=== PATIENT | female | born 1955 | race Caucasian/White ===

== ENCOUNTER 2024-04-19 19:34 | Inpatient (IN) | payer MEDICARE, OTHER ==
[~2024-04-19] VITALS: Ht 165.1 cm; Wt 122.5 kg
[~2024-04-19 19:34] MED LIST: ACET325T53 PO; ARIP10TA9 PO; BISA10SU61 RC; FLUO20CA42 PO; GABA-532 PO; HYDR-3980 PO; LEVO150T8 PO; MAGN400O6 PO; METF-440 PO; NA P133E RC; PANT40TA49 PO; RIVA15TA PO; SEMA0.25 SQ; TEMA15CA PO
[2024-04-19 20:13] LABS: BASOPHILS # (AUTO) 0.4 K/UL (0.0-0.2); BASOPHILS % (AUTO) 2.5 % (0.0-2.0); EOSINOPHILS # (AUTO) 0.4 K/uL (0.0-0.7); EOSINOPHILS % (AUTO) 2.6 % (0.0-7.0); HEMATOCRIT 31.1 % (31.2-41.9); LYMPHOCYTES # (AUTO) 1.3 K/uL (0.8-4.8); LYMPHOCYTES % (AUTO) 8.3 % (20.5-51.5); MEAN CORPUSCULAR HEMOGLOBIN 26.9 uug (24.7-32.8); MEAN CORPUSCULAR HGB CONC 32 g/dL (32.3-35.6); MEAN CORPUSCULAR VOLUME 83.7 fL (75.5-95.3); MONOCYTES # (AUTO) 0.9 K/uL (0.1-1.30); MONOCYTES % (AUTO) 5.9 % (0.0-11.0); NEUTROPHILS # (AUTO) 12.3 K/uL (1.8-8.9); NEUTROPHILS % (AUTO) 80.7 % (38.5-71.5); PLATELET COUNT (AUTO) 491 K/uL (179-408); RED BLOOD CELL COUNT(AUTO) 3.72 MIL/uL (3.63-4.92); RED CELL DISTRIBUTION WIDTH 15.5 % (12.3-17.7); WHITE BLOOD COUNT (AUTO) 15.2 K/uL (3.8-11.8)
[2024-04-19] MEDS ORDERED: ACETAMINOPHEN 325 MG TABLET PO PRN (20:15)
[2024-04-19] MEDS ORDERED: LORAZEPAM 0.5 MG TABLET PO PRN (20:15)
[2024-04-19] MEDS ORDERED: TEMAZEPAM 15 MG CAPSULE PO PRN (20:15)
[2024-04-19 20:22] LABS: CALCIUM 9.3 mg/dL (8.5-10.1); CREATININE 5.4 mg/dL (0.6-1.3); ETHANOL < 3 MG/DL (0-10); POTASSIUM 4.5 mmol/L (3.5-5.1)
[2024-04-19 20:30] LABS: DIFFERENTIAL COMMENT 1
[2024-04-19 20:32] LABS: ALBUMIN 2.3 g/dL (3.4-5.0); BILIRUBIN,TOTAL 0.4 mg/dL (0.2-1.0)
[2024-04-19 20:34] LABS: ALANINE AMINOTRANSFERASE 55 U/L (14-59); ALBUMIN 2.3 g/dL (3.4-5.0); ALKALINE PHOSPHATASE 238 U/L (50-136); ASPARTATE AMINOTRANSFERASE 38 U/L (15-37); BILIRUBIN,DIRECT 0.2 mg/dL (0.0-0.2); BILIRUBIN,TOTAL 0.4 mg/dL (0.2-1.0)
[2024-04-19 20:38] LABS: ACETAMINOPHEN < 2.0 ug/mL (10-30)
[2024-04-19 20:42] LABS: *SODIUM RNDM,URINE 46 mmol/L (40-220)
[2024-04-19 20:43] LABS: NT-PRO BNP 651 pg/mL (0-125)
[2024-04-19 20:44] LABS: *BILIRUBIN,URIN NEGATIVE (NEGATIVE); *BLOOD, URINE 2+ (NEGATIVE); *CLARITY,URINE CLOUDY (CLEAR); *COLOR,URINE Other (YELLOW); *KETONES,URINE NEGATIVE (NEGATIVE); *PROTEIN,URINE 1+ (NEGATIVE); *UROBILINOGEN,URINE 0.2 E.U./dl (NORMAL); LEUKOCYTE ESTERASE ,URINE 3+ (NEGATIVE); NITRITE, URINE POSITIVE (NEGATIVE); UGLUCOSE NEGATIVE (NEGATIVE)
[2024-04-19 20:45] LABS: BACTERIA,URINE FEW /HPF (NONE SEEN)
[2024-04-19] MEDS ORDERED: CEFTRIAXONE /D5W 50ML IVPB **ER PYXIS IV ONE (21:15)
[2024-04-19] MEDS: CEFTRIAXONE 1 G in IV DEXTROSE 5% 50 ML IV ONE (21:23)
[2024-04-19] MEDS: DOCUSATE SODIUM 250 MG CAPSULE PO SCH (23:25)
[2024-04-19] MEDS: IV 1/2NS 1000 ML 1,000 ML IV PRN (23:26)
[2024-04-19 23:53] VITALS: BP 133/51; TEMP 98.2; O2SAT 95
[2024-04-20] MEDS: HYDROCODONE/APAP 5-325MG TABLET PO PRN (00:47)
[2024-04-20 04:49] VITALS: BP 120/66; TEMP 98.2; O2SAT 95
[2024-04-20] MEDS: PANTOPRAZOLE SODIUM 40 MG TABLET.DR PO SCH (06:16)
[2024-04-20 07:31] LABS: BASOPHILS # (AUTO) 0.1 K/UL (0.0-0.2); BASOPHILS % (AUTO) 0.4 % (0.0-2.0); EOSINOPHILS # (AUTO) 0.1 K/uL (0.0-0.7); EOSINOPHILS % (AUTO) 0.4 % (0.0-7.0); HEMATOCRIT 33.7 % (31.2-41.9); HEMOGLOBIN 11.3 g/dL (10.9-14.3); LYMPHOCYTES # (AUTO) 1.4 K/uL (0.8-4.8); LYMPHOCYTES % (AUTO) 6.2 % (20.5-51.5); MEAN CORPUSCULAR HEMOGLOBIN 28.2 uug (24.7-32.8); MEAN CORPUSCULAR HGB CONC 34 g/dL (32.3-35.6); MEAN CORPUSCULAR VOLUME 83.9 fL (75.5-95.3); MONOCYTES # (AUTO) 1.4 K/uL (0.1-1.30); MONOCYTES % (AUTO) 6.4 % (0.0-11.0); NEUTROPHILS # (AUTO) 19.1 K/uL (1.8-8.9); NEUTROPHILS % (AUTO) 86.6 % (38.5-71.5); PLATELET COUNT (AUTO) 490 K/uL (179-408); RED BLOOD CELL COUNT(AUTO) 4.01 MIL/uL (3.63-4.92)
[2024-04-20 07:39] LABS: DIFFERENTIAL COMMENT 1
[2024-04-20 08:06] LABS: THYROID STIMULATING HORMONE 7.134 mIU/mL (0.358-3.740)
[2024-04-20 08:10] VITALS: BP 106/56; TEMP 98; O2SAT 97
[2024-04-20 08:14] LABS: BILIRUBIN,TOTAL 0.3 mg/dL (0.2-1.0); CALCIUM 9.2 mg/dL (8.5-10.1); CREATININE 4.6 mg/dL (0.6-1.3); MAGNESIUM 1.7 mg/dL (1.8-2.4); PHOSPHOROUS 5.5 mg/dL (2.5-4.9); POTASSIUM 3.8 mmol/L (3.5-5.1); TOTAL PROTEIN, SERUM 7.4 g/dL (6.4-8.2)
[2024-04-20] MEDS ORDERED: POTA10CA43 PO (09:59)
[2024-04-20] MEDS ORDERED: ACID1TAB4 PO (10:00)
[2024-04-20] MEDS ORDERED: FURO-152 PO (10:01)
[2024-04-20] MEDS ORDERED: RIVA10TA PO (10:01)
[2024-04-20] MEDS ORDERED: LURA80TA PO (10:02)
[2024-04-20] MEDS ORDERED: ONDA4TAB5 PO (10:03)
[2024-04-20] MEDS ORDERED: MAGNESIUM OXIDE 400 MG TABLET PO ONE (10:15)
[2024-04-20] MEDS ORDERED: REMEDY ESSENTIAL ZINC PASTE 113 GM TOP PRN (11:30)
[2024-04-20 11:50] VITALS: BP 114/62; TEMP 98.1; O2SAT 97
[2024-04-20] MEDS: TRIAMCINOLONE ACET 0.1% CREAM 15 GM TUBE TOP SCH (12:20)
[2024-04-20 16:04] VITALS: BP 115/66; TEMP 97.9; O2SAT 97
[2024-04-20] MEDS ORDERED: BISACODYL 10 MG SUPP.RECT RC PRN (17:30)
[2024-04-20] MEDS: CEFTRIAXONE 1 G in IV DEXTROSE 5% 50 ML IV SCH (18:04)
[2024-04-20 20:00] VITALS: BP 136/73; TEMP 97.1
[2024-04-20] MEDS: DOCUSATE SODIUM 100 MG CAPSULE PO SCH (20:48)
[2024-04-20] MEDS: ARIPIPRAZOLE 10 MG TABLET PO SCH (20:48)
[2024-04-20] MEDS: REMEDY ESSENTIAL ZINC PASTE 113 GM TOP SCH (21:00)
[2024-04-21] MEDS: LEVOTHYROXINE SODIUM 150 MCG TABLET PO SCH (06:26)
[2024-04-21 07:04] LABS: BASOPHILS # (AUTO) 0.1 K/UL (0.0-0.2); BASOPHILS % (AUTO) 0.3 % (0.0-2.0); EOSINOPHILS # (AUTO) 0.3 K/uL (0.0-0.7); EOSINOPHILS % (AUTO) 1.6 % (0.0-7.0); HEMATOCRIT 36.8 % (31.2-41.9); HEMOGLOBIN 11.8 g/dL (10.9-14.3); LYMPHOCYTES # (AUTO) 1.9 K/uL (0.8-4.8); LYMPHOCYTES % (AUTO) 10.6 % (20.5-51.5); MEAN CORPUSCULAR HEMOGLOBIN 27.6 uug (24.7-32.8); MEAN CORPUSCULAR HGB CONC 32 g/dL (32.3-35.6); MEAN CORPUSCULAR VOLUME 85.8 fL (75.5-95.3); MONOCYTES # (AUTO) 1.5 K/uL (0.1-1.30); MONOCYTES % (AUTO) 8.2 % (0.0-11.0); NEUTROPHILS # (AUTO) 14.5 K/uL (1.8-8.9); NEUTROPHILS % (AUTO) 79.3 % (38.5-71.5); PLATELET COUNT (AUTO) 488 K/uL (179-408); RED BLOOD CELL COUNT(AUTO) 4.29 MIL/uL (3.63-4.92); RED CELL DISTRIBUTION WIDTH 16.1 % (12.3-17.7); WHITE BLOOD COUNT (AUTO) 18.3 K/uL (3.8-11.8)
[2024-04-21 07:18] LABS: BILIRUBIN,TOTAL 0.4 mg/dL (0.2-1.0); MAGNESIUM 1.6 mg/dL (1.8-2.4); PHOSPHOROUS 4.8 mg/dL (2.5-4.9); POTASSIUM 3.2 mmol/L (3.5-5.1); TOTAL PROTEIN, SERUM 7.2 g/dL (6.4-8.2)
[2024-04-21 07:21] LABS: DIFFERENTIAL COMMENT 1
[2024-04-21 07:58] VITALS: BP 109/40; TEMP 98.1; O2SAT 97
[2024-04-21] MEDS: FLUOXETINE HCL 20 MG CAPSULE PO SCH (08:24)
[2024-04-21] MEDS: GABAPENTIN 300 MG CAPSULE PO SCH (08:24)
[2024-04-21] MEDS: ACIDOPHILUS/BULGARICUS CHEW TAB PO SCH (08:24)
[2024-04-21] MEDS ORDERED: GABAPENTIN 100 MG CAPSULE PO SCH (09:00)
[2024-04-21] MEDS ORDERED: POTASSIUM CHLORIDE 20 MEQ TAB.PRT.SR PO ONE (09:30)
[2024-04-21] MEDS: MAGNESIUM SULFATE/D5W 100 ML IV SCH (10:04)
[2024-04-21 11:48] VITALS: BP 131/67; TEMP 97.6; O2SAT 97
[2024-04-21] MEDS: POTASSIUM CHLORIDE 20 MEQ TAB.PRT.SR PO ONE (12:35)
[2024-04-21 15:25] VITALS: BP 133/66; TEMP 97.4; O2SAT 97
[2024-04-21] MEDS: CEFTRIAXONE 2 G in IV DEXTROSE 5% 100 ML IV SCH (17:39)
[2024-04-21] MEDS: MUPIROCIN 2% OINT 22 GM TUBE NS SCH (21:44)
[2024-04-21 22:37] VITALS: BP 156/63; TEMP 97; O2SAT 96
[2024-04-22] MEDS: ONDANSETRON 4 MG/2 ML VIAL IV PRN (00:19)
[2024-04-22 07:07] LABS: BASOPHILS # (AUTO) 0.1 K/UL (0.0-0.2); BASOPHILS % (AUTO) 0.4 % (0.0-2.0); EOSINOPHILS # (AUTO) 0.5 K/uL (0.0-0.7); EOSINOPHILS % (AUTO) 2.8 % (0.0-7.0); HEMATOCRIT 31.3 % (31.2-41.9); HEMOGLOBIN 10.5 g/dL (10.9-14.3); LYMPHOCYTES # (AUTO) 1.5 K/uL (0.8-4.8); MEAN CORPUSCULAR HGB CONC 33 g/dL (32.3-35.6); MEAN CORPUSCULAR VOLUME 83.8 fL (75.5-95.3); MONOCYTES # (AUTO) 1.5 K/uL (0.1-1.30); MONOCYTES % (AUTO) 8.2 % (0.0-11.0); NEUTROPHILS # (AUTO) 14.9 K/uL (1.8-8.9); NEUTROPHILS % (AUTO) 80.6 % (38.5-71.5); PLATELET COUNT (AUTO) 433 K/uL (179-408); RED BLOOD CELL COUNT(AUTO) 3.74 MIL/uL (3.63-4.92); RED CELL DISTRIBUTION WIDTH 15.9 % (12.3-17.7); WHITE BLOOD COUNT (AUTO) 18.5 K/uL (3.8-11.8)
[2024-04-22 07:17] LABS: DIFFERENTIAL COMMENT 1
[2024-04-22 07:21] LABS: CALCIUM 8.5 mg/dL (8.5-10.1); CREATININE 2.3 mg/dL (0.6-1.3); MAGNESIUM 1.7 mg/dL (1.8-2.4)
[2024-04-22] MEDS: MAGNESIUM OXIDE 400 MG TABLET PO SCH (08:32)
[2024-04-22] MEDS: POTASSIUM CHLORIDE 20 MEQ TAB.PRT.SR PO ONE (08:33)
[2024-04-22 16:00] VITALS: BP 137/87; TEMP 98.6; O2SAT 97
[2024-04-22 20:10] VITALS: BP 149/68; TEMP 97.8; O2SAT 97
[2024-04-22] MEDS ORDERED: CEFEPIME HCL 1 G VIAL ONE (21:52)
[2024-04-23 04:10] VITALS: BP 135/60; TEMP 97.7; O2SAT 97
[2024-04-23 06:28] LABS: BASOPHILS # (AUTO) 0.1 K/UL (0.0-0.2); BASOPHILS % (AUTO) 0.4 % (0.0-2.0); EOSINOPHILS # (AUTO) 0.7 K/uL (0.0-0.7); EOSINOPHILS % (AUTO) 3.9 % (0.0-7.0); HEMOGLOBIN 10.3 g/dL (10.9-14.3); LYMPHOCYTES # (AUTO) 1.6 K/uL (0.8-4.8); LYMPHOCYTES % (AUTO) 8.9 % (20.5-51.5); MEAN CORPUSCULAR HEMOGLOBIN 27.8 uug (24.7-32.8); MEAN CORPUSCULAR HGB CONC 33 g/dL (32.3-35.6); MEAN CORPUSCULAR VOLUME 83.8 fL (75.5-95.3); MONOCYTES # (AUTO) 1.5 K/uL (0.1-1.30); MONOCYTES % (AUTO) 8.8 % (0.0-11.0); NEUTROPHILS # (AUTO) 13.6 K/uL (1.8-8.9); PLATELET COUNT (AUTO) 418 K/uL (179-408); RED BLOOD CELL COUNT(AUTO) 3.71 MIL/uL (3.63-4.92); RED CELL DISTRIBUTION WIDTH 16.1 % (12.3-17.7); WHITE BLOOD COUNT (AUTO) 17.4 K/uL (3.8-11.8)
[2024-04-23 06:46] LABS: ALBUMIN 1.9 g/dL (3.4-5.0); BILIRUBIN,TOTAL 0.3 mg/dL (0.2-1.0); CALCIUM 8.9 mg/dL (8.5-10.1); MAGNESIUM 1.6 mg/dL (1.8-2.4); PHOSPHOROUS 3.5 mg/dL (2.5-4.9); POTASSIUM 3.3 mmol/L (3.5-5.1); TOTAL PROTEIN, SERUM 6.6 g/dL (6.4-8.2)
[2024-04-23 06:58] LABS: DIFFERENTIAL COMMENT 1
[2024-04-23] MEDS: CEFEPIME HCL 2 GM in IV DEXTROSE 5% 100 ML IV SCH (08:53)
[2024-04-23] MEDS ORDERED: CEFEPIME HCL 1 G in IV DEXTROSE 5% 50 ML IV SCH (09:00)
[2024-04-23] MEDS: POTASSIUM CHLORIDE 10 MEQ TAB.PRT.SR PO ONE (11:46)
[2024-04-23 12:08] VITALS: BP 148/63; TEMP 97.8; O2SAT 95
[2024-04-23] MEDS: MAGNESIUM SULFATE/D5W 100 ML IV SCH (14:05)
[2024-04-23 16:48] VITALS: BP 129/55; TEMP 97.8; O2SAT 95
[2024-04-23 20:00] VITALS: BP 142/61; TEMP 97.5; O2SAT 95
[2024-04-24 05:18] VITALS: BP 125/66; TEMP 97.4; O2SAT 96
[2024-04-24 06:58] LABS: BASOPHILS # (AUTO) 0.1 K/UL (0.0-0.2); BASOPHILS % (AUTO) 0.5 % (0.0-2.0); EOSINOPHILS # (AUTO) 0.7 K/uL (0.0-0.7); EOSINOPHILS % (AUTO) 4.6 % (0.0-7.0); HEMATOCRIT 26.7 % (31.2-41.9); HEMOGLOBIN 8.9 g/dL (10.9-14.3); LYMPHOCYTES # (AUTO) 1.8 K/uL (0.8-4.8); LYMPHOCYTES % (AUTO) 12.4 % (20.5-51.5); MEAN CORPUSCULAR HEMOGLOBIN 27.8 uug (24.7-32.8); MEAN CORPUSCULAR HGB CONC 33 g/dL (32.3-35.6); MEAN CORPUSCULAR VOLUME 83.9 fL (75.5-95.3); MONOCYTES # (AUTO) 1.1 K/uL (0.1-1.30); NEUTROPHILS # (AUTO) 10.7 K/uL (1.8-8.9); NEUTROPHILS % (AUTO) 74.5 % (38.5-71.5); PLATELET COUNT (AUTO) 409 K/uL (179-408); RED BLOOD CELL COUNT(AUTO) 3.18 MIL/uL (3.63-4.92); RED CELL DISTRIBUTION WIDTH 16.2 % (12.3-17.7); WHITE BLOOD COUNT (AUTO) 14.3 K/uL (3.8-11.8)
[2024-04-24 07:22] LABS: ALBUMIN 1.7 g/dL (3.4-5.0); BILIRUBIN,TOTAL 0.3 mg/dL (0.2-1.0); CALCIUM 8.6 mg/dL (8.5-10.1); CREATININE 1.9 mg/dL (0.6-1.3); MAGNESIUM 1.8 mg/dL (1.8-2.4); PHOSPHOROUS 3.4 mg/dL (2.5-4.9); POTASSIUM 3.5 mmol/L (3.5-5.1); TOTAL PROTEIN, SERUM 6.3 g/dL (6.4-8.2)
[2024-04-24 07:23] LABS: DIFFERENTIAL COMMENT 1
[2024-04-24 11:54] VITALS: BP 148/58; TEMP 98; O2SAT 98
[2024-04-24] MEDS ORDERED: CRAN450T9 PO (12:26)
[2024-04-24] MEDS ORDERED: TAMS-3 PO (12:26)
[2024-04-24] MEDS ORDERED: CIPR-263 PO (12:26)
[2024-04-24] MEDS ORDERED: LEVO175T7 PO (12:26)
[2024-04-24] MEDS ORDERED: GABA-532 PO (12:26)
[2024-04-24 14:06] VITALS: BP 125/60; TEMP 97.5; O2SAT 97
[2024-04-24 15:45] VITALS: BP 141/58; TEMP 97.8; O2SAT 98
== END 2024-04-24 15:45 | DRG 871 ==
LOC: ER 19:36 → TELE3 22:19 → MEDSURG3 04-21 11:12
PROVIDERS: ADMIT Internal Medicine; ATTEND Internal Medicine
DX: A41.59 Other Gram-negative sepsis (principal); E43 Unspecified severe protein-calorie malnutrition; G92.8 Other toxic encephalopathy; N17.9 Acute kidney failure, unspecified; Z68.41 Body mass index [BMI] 40.0-44.9, adult; D68.59 Other primary thrombophilia; N13.6 Pyonephrosis; R65.20 Severe sepsis without septic shock; E66.01 Morbid (severe) obesity due to excess calories; D50.9 Iron deficiency anemia, unspecified; E03.9 Hypothyroidism, unspecified; F41.9 Anxiety disorder, unspecified; F25.0 Schizoaffective disorder, bipolar type; S82.51XD Displaced fracture of medial malleolus of right tibia, subsequent encounter for closed fracture with routine healing; Z74.09 Other reduced mobility; X58.XXXD Exposure to other specified factors, subsequent encounter; E11.42 Type 2 diabetes mellitus with diabetic polyneuropathy; Z79.01 Long term (current) use of anticoagulants; Z79.84 Long term (current) use of oral hypoglycemic drugs; Z79.899 Other long term (current) drug therapy; Z87.891 Personal history of nicotine dependence; Z79.890 Hormone replacement therapy; Z22.322 Carrier or suspected carrier of Methicillin resistant Staphylococcus aureus; R31.9 Hematuria, unspecified
CPT/HCPCS: 36415; 71045; 73600; 83550; 83605; 83735; 84100; 84300; 84443; 84480; 84484; 85025; 85610; 87040; 93005; A4606; A4663; G0378; G0480; J0692; J0696; J2405; J3475

== ENCOUNTER 2024-08-11 14:12 | Inpatient (IN) | payer MEDICARE, OTHER ==
[~2024-08-11] VITALS: Ht 165.1 cm; Wt 115.2 kg
[~2024-08-11 14:12] MED LIST changes: +ACID1TAB4 PO; +CIPR-263 PO; +CRAN450T9 PO; -HYDR-3980 PO; -LEVO150T8 PO; +LEVO175T7 PO; +LURA80TA PO; -MAGN400O6 PO; -METF-440 PO; +ONDA4TAB5 PO; +RIVA10TA PO; -RIVA15TA PO; +TAMS-3 PO; -TEMA15CA PO
[2024-08-11 16:17] LABS: *BILIRUBIN,URIN NEGATIVE (NEGATIVE); *CLARITY,URINE CLEAR (CLEAR); *KETONES,URINE NEGATIVE (NEGATIVE); *PROTEIN,URINE NEGATIVE (NEGATIVE); *UROBILINOGEN,URINE 0.2 E.U./dl (NORMAL); LEUKOCYTE ESTERASE ,URINE 1+ (NEGATIVE); NITRITE, URINE NEGATIVE (NEGATIVE); PH,URINE 5.5 (5.0-8.0); UGLUCOSE NEGATIVE (NEGATIVE)
[2024-08-11 16:21] LABS: *BLOOD, URINE TRACE (NEGATIVE); *COLOR,URINE LIGHT YELLOW (YELLOW)
[2024-08-11 16:23] LABS: BASOPHILS # (AUTO) 0.1 K/UL (0.0-0.2); BASOPHILS % (AUTO) 0.6 % (0.0-2.0); EOSINOPHILS # (AUTO) 0.2 K/uL (0.0-0.7); HEMATOCRIT 39.7 % (31.2-41.9); HEMOGLOBIN 13.3 g/dL (10.9-14.3); LYMPHOCYTES # (AUTO) 2.9 K/uL (0.8-4.8); LYMPHOCYTES % (AUTO) 29.2 % (20.5-51.5); MEAN CORPUSCULAR HEMOGLOBIN 28.1 uug (24.7-32.8); MEAN CORPUSCULAR HGB CONC 34 g/dL (32.3-35.6); MONOCYTES # (AUTO) 0.7 K/uL (0.1-1.30); MONOCYTES % (AUTO) 6.8 % (0.0-11.0); NEUTROPHILS # (AUTO) 6.2 K/uL (1.8-8.9); NEUTROPHILS % (AUTO) 61.4 % (38.5-71.5); PLATELET COUNT (AUTO) 336 K/uL (179-408); RED BLOOD CELL COUNT(AUTO) 4.72 MIL/uL (3.63-4.92); RED CELL DISTRIBUTION WIDTH 16.1 % (12.3-17.7); WHITE BLOOD COUNT (AUTO) 10.1 K/uL (3.8-11.8)
[2024-08-11 16:25] LABS: DIFFERENTIAL COMMENT 1
[2024-08-11 16:26] LABS: CALCIUM 9.1 mg/dL (8.5-10.1); CARBON DIOXIDE 25 mmol/L (21-32); CHLORIDE 101 mmol/L (98-107); CREATININE 0.9 mg/dL (0.6-1.3); GLUCOSE 112 mg/dL (74-106); POTASSIUM 3.8 mmol/L (3.5-5.1); SODIUM SERUM 136 mmol/L (136-145); UREA NITROGEN, BLOOD 29 mg/dL (7-18)
[2024-08-11] MEDS ORDERED: METF-440 PO (16:29)
[2024-08-11] MEDS ORDERED: POLY17PO4 PO (16:29)
[2024-08-11] MEDS ORDERED: LEVO150T8 PO (16:29)
[2024-08-11] MEDS ORDERED: SEMA1PEN SQ (16:29)
[2024-08-11] MEDS ORDERED: VITAMIN E PO (16:29)
[2024-08-11] MEDS ORDERED: GABA-532 PO (16:29)
[2024-08-11] MEDS ORDERED: MAGN400T26 PO (16:29)
[2024-08-11] MEDS ORDERED: MAGN400O6 PO (16:29)
[2024-08-11] MEDS ORDERED: CHOL200026 PO (16:29)
[2024-08-11 16:35] LABS: RBC,URINE 0-3 /HPF (0-3)
[2024-08-11 16:36] LABS: BACTERIA,URINE FEW /HPF (NONE SEEN); SQUAMOUS EPITHELIAL CELL,UR FEW /HPF (NONE SEEN)
[2024-08-11 16:39] LABS: ALANINE AMINOTRANSFERASE 12 U/L (14-59); ALBUMIN 2.9 g/dL (3.4-5.0); ALKALINE PHOSPHATASE 95 U/L (50-136); ASPARTATE AMINOTRANSFERASE 11 U/L (15-37); BILIRUBIN,DIRECT 0.1 mg/dL (0.0-0.2); BILIRUBIN,TOTAL 0.3 mg/dL (0.2-1.0); NT-PRO BNP 144 pg/mL (0-125); TOTAL PROTEIN, SERUM 7.4 g/dL (6.4-8.2)
[2024-08-11] MEDS: MAGNESIUM SULFATE/D5W 100 ML IV SCH (17:15)
[2024-08-11] MEDS ORDERED: MAGNESIUM SULFATE/D5W 100 ML ONE (17:50)
[2024-08-11] MEDS ORDERED: CEFTRIAXONE /D5W 50ML IVPB **ER PYXIS IV ONE (17:51)
[2024-08-11] MEDS: IV NS 1000 ML 1,000 ML IV ONE (18:03)
[2024-08-11] MEDS: CEFTRIAXONE 1 G in IV DEXTROSE 5% 50 ML IV ONE (18:03)
[2024-08-11] MEDS ORDERED: ONDANSETRON 4 MG/2 ML VIAL IV PRN (18:45)
[2024-08-11] MEDS ORDERED: REMEDY ESSENTIAL ZINC PASTE 113 GM TP PRN (18:45)
[2024-08-11] MEDS ORDERED: ACETAMINOPHEN 325 MG TABLET PO PRN (18:45)
[2024-08-11] MEDS ORDERED: MAGNESIUM HYDROXIDE 30 ML LIQUID UDC PO PRN (18:45)
[2024-08-11] MEDS ORDERED: MAGNESIUM SULFATE/D5W 200 ML ONE (20:33)
[2024-08-11] MEDS ORDERED: ENOXAPARIN SODIUM 40 MG/0.4 ML DISP.SYRIN SQ ONE (21:45)
[2024-08-11] MEDS: ENOXAPARIN SODIUM 40 MG/0.4 ML DISP.SYRIN SQ SCH (21:45)
[2024-08-12] MEDS ORDERED: BISACODYL 10 MG SUPP.RECT RC PRN
[2024-08-12] MEDS ORDERED: INSULIN REGULAR, HUMAN 300 UNITS/3 ML VIAL SQ PRN
[2024-08-12] MEDS ORDERED: DEXTROSE 50% 50 ML DISP.SYRIN IV PRN
[2024-08-12] MEDS ORDERED: MAGNESIUM HYDROXIDE 30 ML LIQUID UDC PO PRN
[2024-08-12] MEDS ORDERED: INSULIN REGULAR, HUMAN 1000 UNIT/10 ML VIAL SQ PRN
[2024-08-12] MEDS ORDERED: FLEET ENEMA 133 ML BOTTLE RC PRN
[2024-08-12 01:00] VITALS: BP 128/75; TEMP 98; O2SAT 97
[2024-08-12 05:45] VITALS: BP 140/65; TEMP 98; O2SAT 97
[2024-08-12] MEDS: PANTOPRAZOLE SODIUM 40 MG TABLET.DR PO SCH (06:21)
[2024-08-12] MEDS: LEVOTHYROXINE SODIUM 150 MCG TABLET PO SCH (06:22)
[2024-08-12] MEDS: BLOOD SUGAR DIAGNOSTIC 1 EACH STRIP VI SCH (06:23)
[2024-08-12 06:33] LABS: CALCIUM 9.8 mg/dL (8.5-10.1); MAGNESIUM 2.4 mg/dL (1.8-2.4); PHOSPHOROUS 3.7 mg/dL (2.5-4.9); POTASSIUM 3.9 mmol/L (3.5-5.1)
[2024-08-12 06:45] LABS: THYROID STIMULATING HORMONE 0.726 mIU/mL (0.358-3.740)
[2024-08-12 07:03] LABS: BASOPHILS # (AUTO) 0.1 K/UL (0.0-0.2); BASOPHILS % (AUTO) 1.4 % (0.0-2.0); DIFFERENTIAL COMMENT 0; EOSINOPHILS # (AUTO) 0.2 K/uL (0.0-0.7); EOSINOPHILS % (AUTO) 1.9 % (0.0-7.0); HEMATOCRIT 41.7 % (31.2-41.9); HEMOGLOBIN 13.9 g/dL (10.9-14.3); LYMPHOCYTES # (AUTO) 2.7 K/uL (0.8-4.8); LYMPHOCYTES % (AUTO) 31.4 % (20.5-51.5); MEAN CORPUSCULAR HGB CONC 33 g/dL (32.3-35.6); MONOCYTES # (AUTO) 0.5 K/uL (0.1-1.30); MONOCYTES % (AUTO) 6.1 % (0.0-11.0); NEUTROPHILS # (AUTO) 5.1 K/uL (1.8-8.9); NEUTROPHILS % (AUTO) 59.2 % (38.5-71.5); PLATELET COUNT (AUTO) 327 K/uL (179-408); RED BLOOD CELL COUNT(AUTO) 4.97 MIL/uL (3.63-4.92); RED CELL DISTRIBUTION WIDTH 16.6 % (12.3-17.7); WHITE BLOOD COUNT (AUTO) 8.5 K/uL (3.8-11.8)
[2024-08-12] MEDS: VITAMIN E 400 UNITS CAPSULE PO SCH (08:49)
[2024-08-12] MEDS: CHOLECALCIFEROL 1,000 UNIT TABLET PO SCH (08:49)
[2024-08-12] MEDS: METFORMIN HCL 500 MG TABLET PO SCH (08:49)
[2024-08-12] MEDS: FLUOXETINE HCL 20 MG CAPSULE PO SCH (08:49)
[2024-08-12] MEDS ORDERED: MAGNESIUM OXIDE 400 MG TABLET PO SCH ×2 (09:00)
[2024-08-12] MEDS ORDERED: CEFTRIAXONE 1 G in IV DEXTROSE 5% 50 ML IV SCH (09:00)
[2024-08-12] MEDS ORDERED: Medication Not On Formulary EA (Cranberry Fruit (Cranberry) 450 MG) PO SCH (09:00)
[2024-08-12] MEDS ORDERED: LURASIDONE HCL 80 MG PO SCH (09:00)
[2024-08-12] MEDS ORDERED: GABAPENTIN 100 MG CAPSULE PO SCH (09:00)
[2024-08-12] MEDS ORDERED: DOXY100T2 PO (11:09)
[2024-08-12] MEDS: GABAPENTIN 300 MG CAPSULE PO SCH (11:28)
[2024-08-12 12:01] VITALS: BP 108/52; TEMP 97.8; O2SAT 97
[2024-08-12 15:52] VITALS: BP 121/50; TEMP 97.7; O2SAT 97
[2024-08-12] MEDS: CEFTRIAXONE 2 G in IV DEXTROSE 5% 100 ML IV SCH (17:03)
[2024-08-12] MEDS: RIVAROXABAN 10 MG TABLET PO SCH (17:04)
[2024-08-12] MEDS: ARGININE/GLUTAMINE/CALCIUM BMB 1 EACH POWD.PACK PO SCH (17:06)
[2024-08-12 19:00] VITALS: BP 119/52; TEMP 97.6; O2SAT 95
[2024-08-12] MEDS: ARIPIPRAZOLE 10 MG TABLET PO SCH (20:35)
[2024-08-12] MEDS: TAMSULOSIN HCL 0.4 MG CAP.SR.24H PO SCH (20:35)
[2024-08-13 06:00] VITALS: BP 110/48; TEMP 97.7; O2SAT 96
[2024-08-13 07:41] LABS: BASOPHILS % (AUTO) 0.4 % (0.0-2.0); EOSINOPHILS # (AUTO) 0.2 K/uL (0.0-0.7); EOSINOPHILS % (AUTO) 2.5 % (0.0-7.0); HEMATOCRIT 38.1 % (31.2-41.9); HEMOGLOBIN 12.9 g/dL (10.9-14.3); LYMPHOCYTES # (AUTO) 2.5 K/uL (0.8-4.8); LYMPHOCYTES % (AUTO) 32.4 % (20.5-51.5); MEAN CORPUSCULAR HEMOGLOBIN 28.4 uug (24.7-32.8); MEAN CORPUSCULAR HGB CONC 34 g/dL (32.3-35.6); MONOCYTES # (AUTO) 0.6 K/uL (0.1-1.30); MONOCYTES % (AUTO) 7.7 % (0.0-11.0); NEUTROPHILS # (AUTO) 4.4 K/uL (1.8-8.9); PLATELET COUNT (AUTO) 307 K/uL (179-408); RED BLOOD CELL COUNT(AUTO) 4.54 MIL/uL (3.63-4.92); RED CELL DISTRIBUTION WIDTH 16.3 % (12.3-17.7); WHITE BLOOD COUNT (AUTO) 7.6 K/uL (3.8-11.8)
[2024-08-13 07:46] LABS: DIFFERENTIAL COMMENT 1
[2024-08-13 07:49] LABS: CALCIUM 9.4 mg/dL (8.5-10.1); CREATININE 1.1 mg/dL (0.6-1.3); MAGNESIUM 2.1 mg/dL (1.8-2.4); PHOSPHOROUS 3.9 mg/dL (2.5-4.9)
[2024-08-13 11:37] VITALS: BP 122/51; TEMP 98.2; O2SAT 96
[2024-08-13 15:52] VITALS: BP 101/55; TEMP 98.7; O2SAT 92
[2024-08-13] MEDS: MAGNESIUM OXIDE 400 MG TABLET PO SCH (16:27)
[2024-08-13 19:00] VITALS: BP 123/55; TEMP 97.5; O2SAT 96
[2024-08-14 06:00] VITALS: BP 114/52; TEMP 97.7; O2SAT 95
[2024-08-14 11:31] VITALS: BP 130/59; TEMP 98.3; O2SAT 97
[2024-08-14 16:16] VITALS: BP 122/57; TEMP 98.2; O2SAT 98
[2024-08-14 20:00] VITALS: BP 108/54; TEMP 97.9; O2SAT 99
[2024-08-15 06:00] VITALS: BP 129/56; TEMP 97.6; O2SAT 96
[2024-08-15 07:02] LABS: BASOPHILS % (AUTO) 0.5 % (0.0-2.0); EOSINOPHILS # (AUTO) 0.1 K/uL (0.0-0.7); EOSINOPHILS % (AUTO) 1.5 % (0.0-7.0); HEMATOCRIT 37.1 % (31.2-41.9); HEMOGLOBIN 12.6 g/dL (10.9-14.3); LYMPHOCYTES # (AUTO) 2.8 K/uL (0.8-4.8); LYMPHOCYTES % (AUTO) 31.2 % (20.5-51.5); MEAN CORPUSCULAR HEMOGLOBIN 28.5 uug (24.7-32.8); MEAN CORPUSCULAR HGB CONC 34 g/dL (32.3-35.6); MEAN CORPUSCULAR VOLUME 83.8 fL (75.5-95.3); MONOCYTES # (AUTO) 0.7 K/uL (0.1-1.30); MONOCYTES % (AUTO) 7.4 % (0.0-11.0); NEUTROPHILS # (AUTO) 5.3 K/uL (1.8-8.9); NEUTROPHILS % (AUTO) 59.4 % (38.5-71.5); PLATELET COUNT (AUTO) 302 K/uL (179-408); RED BLOOD CELL COUNT(AUTO) 4.43 MIL/uL (3.63-4.92); RED CELL DISTRIBUTION WIDTH 16.4 % (12.3-17.7); WHITE BLOOD COUNT (AUTO) 8.9 K/uL (3.8-11.8)
[2024-08-15 07:10] LABS: CALCIUM 9.1 mg/dL (8.5-10.1); CREATININE 1.3 mg/dL (0.6-1.3); MAGNESIUM 1.9 mg/dL (1.8-2.4); PHOSPHOROUS 3.6 mg/dL (2.5-4.9); POTASSIUM 3.8 mmol/L (3.5-5.1)
[2024-08-15 07:17] LABS: DIFFERENTIAL COMMENT 1
[2024-08-15 11:30] VITALS: BP 128/61; TEMP 97.9; O2SAT 96
[2024-08-15 15:47] VITALS: BP 135/72; TEMP 97.1; O2SAT 100
[2024-08-15] MEDS ORDERED: ACID1TAB4 PO (16:29)
[2024-08-15] MEDS ORDERED: AMOX-427 PO (16:29)
[2024-08-15] MEDS ORDERED: NUTR1PAC14 PO (16:29)
== END 2024-08-15 20:10 | DRG 689 ==
LOC: ER 14:12 → MEDSURG3 15:00
PROVIDERS: ADMIT Student in an Organized Health Care Education/Training Program; ATTEND Student in an Organized Health Care Education/Training Program
DX: N39.0 Urinary tract infection, site not specified (principal); G92.8 Other toxic encephalopathy; N17.0 Acute kidney failure with tubular necrosis; E44.0 Moderate protein-calorie malnutrition; Z68.41 Body mass index [BMI] 40.0-44.9, adult; T81.31XA Disruption of external operation (surgical) wound, not elsewhere classified, initial encounter; D68.59 Other primary thrombophilia; E86.0 Dehydration; F31.9 Bipolar disorder, unspecified; E03.9 Hypothyroidism, unspecified; E11.42 Type 2 diabetes mellitus with diabetic polyneuropathy; E66.01 Morbid (severe) obesity due to excess calories; B96.20 Unspecified Escherichia coli [E. coli] as the cause of diseases classified elsewhere; K21.9 Gastro-esophageal reflux disease without esophagitis; M19.171 Post-traumatic osteoarthritis, right ankle and foot; S82.61XS Displaced fracture of lateral malleolus of right fibula, sequela; X58.XXXS Exposure to other specified factors, sequela; F25.9 Schizoaffective disorder, unspecified; Z79.01 Long term (current) use of anticoagulants; Z79.84 Long term (current) use of oral hypoglycemic drugs; E83.42 Hypomagnesemia; R26.2 Difficulty in walking, not elsewhere classified; Z79.890 Hormone replacement therapy; Z79.899 Other long term (current) drug therapy; Z71.3 Dietary counseling and surveillance; F41.9 Anxiety disorder, unspecified; G89.29 Other chronic pain; R00.1 Bradycardia, unspecified; Z87.891 Personal history of nicotine dependence; D50.9 Iron deficiency anemia, unspecified
CPT/HCPCS: 36415; 73610; 83735; 84100; 84443; 84484; 85025; A4606; A4663; A6209; A6213; C1758; G0378; J0696; J1650; J1815; J3475; J7040